=== PATIENT | female | born 1985 | race Caucasian/White ===

== ENCOUNTER → 2018-02-08 | Outpatient (CLI) | payer BC ==
[~2018-02-08] MED LIST: BACTRIM DS 8001 TAB PO; CEPHALEXIN500 M1 PO; NO HOME MEDICATIONS; NORCO 325 MG-51 TAB PO; PERCOCET 5/321 UDTAB PO; [UNRECOGNIZED DRUG - REMARK]
== END ==
LOC: COL.RAD 10:24
DX: R10.11 Right upper quadrant pain (principal)